=== PATIENT | female | born 1995 | race Hispanic/Latino ===

== ENCOUNTER 2019-12-30 19:14 | Emergency (ER) | payer SELFPAY ==
--- NOTE | 2019-12-30 19:44 | RAD ---
Left hand 3 views HISTORY: Injury. FINDINGS: Mildly comminuted oblique fracture of the distal fifth metacarpal shaft is present with pro minent apex medial angulation and posterior angulation. Minimal volar and lateral displacement of the distal fragment. No evidence of intra-articular extension. Joint spaces are preserved. IMPRESSION : Left fifth metacarpal fracture.
[2019-12-30] MEDS ORDERED: Morphine 10 MG/ML VIAL ONE (20:04)
--- NOTE | 2019-12-30 21:32 | RAD ---
Left hand 3 views HISTORY: Fracture. COMPARISON: Earlier exam on the same date. FINDINGS: Overlying fiberglass splint now in place. [place] medial displacement and angulation of the co mminuted fifth metacarpal fracture has decreased moderately since the prior exam. No new abnormalities are demonstrated.
== END 2019-12-30 23:18 | disposition home or self-care (01) ==
LOC: ERS 19:14
DX: S62.327A Displaced fracture of shaft of fifth metacarpal bone, left hand, initial encounter for closed fracture (principal); F32.9 Major depressive disorder, single episode, unspecified; W22.8XXA Striking against or struck by other objects, initial encounter
CPT/HCPCS: 26605; 96372; J2270